=== PATIENT | male | born 1960 ===

== ENCOUNTER 2018-02-25 01:27 | Observation (INO) | payer OTHER ==
--- NOTE | 2018-02-25 01:48 | ED PDOC ---
Arrival/HPI - General Time Seen by Provider: 02/25/18 01:28 Historian: Patient - History of Present Illness Narrative History of Present Illness (Text): 02/25/18 01:46 58 year old male, whose past medical history includes CAD with stents s/p CABG, hypertension, seizure disorder (Keppra), A-fib, COPD, CHF w/ defibrillator, asplenia, alcohol abuse, and depression, presents to the emergency department complaining of onset chest pressure associated with shortness of breath. Patient denies any fever, chills, cough, nausea, vomiting, diarrhea, urinary symptoms, back pain, neck pain, headache, dizziness, or any other complaints. PMD: Dr. Adalberto Marlow Symptom Onset: Gradual Symptom Course: Unchanged Quality: Pressure Activities at Onset: Light Context: Home Past Medical History - Provider Review Nursing Documentation Reviewed: Yes - Infectious Disease Hx of Infectious Diseases: None - Tetanus Immunization Tetanus Immunization: Unknown - Cardiac Hx Atrial Fibrillation: Yes Hx Cardiac Arrhythmia: Yes Hx Congestive Heart Failure: Yes Hx Hypertension: Yes Hx Pacemaker: Yes - Pulmonary Hx Asthma: Yes Hx Chronic Obstructive Pulmonary Disease (COPD): Yes Hx Pneumonia: Yes - Neurological Hx Seizures: Yes - HEENT Hx HEENT Disorder: No - Renal Hx Renal Disorder: No - Endocrine/Metabolic Hx Endocrine Disorders: Yes Hx Diabetes Mellitus Type 2: Yes - Hematological/Oncological Hx Blood Disorders: No - Integumentary Hx Dermatological Disorder: No - Musculoskeletal/Rheumatological Hx Musculoskeletal Disorders: Yes Hx Falls: Yes (hx of siezures) - Gastrointestinal Hx Gastrointestinal Disorders: No - Genitourinary/Gynecological Hx Genitourinary Disorders: No - Psychiatric Hx Depression: Yes Hx Substance Use: Yes - Surgical History Hx Coronary Artery Bypass Graft: Yes Hx Coronary Stent: Yes (4) - Anesthesia Hx Anesthesia: Yes Hx Anesthesia Reactions: No Hx Malignant Hyperthermia: No - Suicidal Assessment Feels Threatened In Home Enviroment: No Family/Social History - Physician Review Nursing Documentation Reviewed: Yes Family/Social History: No Known Family HX Smoking Status: Former Smoker Hx Alcohol Use: No Hx Substance Use: Yes Hx Substance Use Treatment: No Allergies/Home Meds Allergies/Adverse Reactions: Allergies No Known Allergies Allergy (Verified 02/25/18 01:32) as per patient Home Medications: Home Meds Medication Instructions Recorded Confirmed Dicyclomine [Bentyl] 20 mg PO DAILY 05/30/17 02/25/18 Fluticasone/Salmeterol [Advair 1 each IH Q4H PRN 05/30/17 02/25/18 250-50 Diskus] Folic Acid 1 mg PO DAILY 05/30/17 02/25/18 Thiamine [Vitamin B1 Tab] 100 mg PO DAILY 05/30/17 02/25/18 Zolpidem [Ambien] 5 mg PO HS 05/30/17 02/25/18 Albuterol/Ipratropium [Combivent 1 puff IH PRN PRN 07/30/17 02/25/18 Respimat] Apixaban [Eliquis] 5 mg PO Q12H 07/30/17 02/25/18 Fluticasone/Vilanterol [Breo 1 each IH DAILY 07/30/17 02/25/18 Ellipta 200-25 Mcg INH] Furosemide [Lasix] 40 mg PO DAILY 07/30/17 02/25/18 Montelukast [Singulair] 10 mg PO DAILY 07/30/17 02/25/18 Multivitamin [Daily Terence] 1 tab PO DAILY 07/30/17 02/25/18 Carvedilol [Coreg] 12.5 mg PO BID 11/14/17 02/25/18 Lisinopril [Zestril] 5 mg PO DAILY 11/14/17 02/25/18 Prednisone [Deltasone] 20 mg PO DAILY 11/14/17 02/25/18 Spironolactone [Aldactone] 25 mg PO DAILY 11/14/17 02/25/18 Review of Systems - Physician Review All systems were reviewed & negative as marked: Yes - Review of Systems Constitutional: absent: Fevers, Other (Chills) Respiratory: SOB Cardiovascular: Chest Pain (Pressure) Gastrointestinal: absent: Diarrhea, Nausea, Vomiting Genitourinary Male: absent: Dysuria, Frequency, Hematuria Musculoskeletal: absent: Back Pain, Neck Pain Neurological: absent: Headache, Dizziness Physical Exam Vital Signs Reviewed: Yes Vital Signs Temp Pulse Resp BP Pulse Ox 02/25/18 01:50 98 F 90 16 118/79 100 Temperature: Afebrile Blood Pressure: Normal Pulse: Regular Respiratory Rate: Normal Appearance: Positive for: Well-Appearing, Non-Toxic, Comfortable Pain Distress: None Mental Status: Positive for: Alert and Oriented X 3 - Systems Exam Head: Present: Atraumatic, Normocephalic Pupils: Present: PERRL Extroacular Muscles: Present: EOMI Conjunctiva: Present: Normal Mouth: Present: Moist Mucous Membranes Neck: Present: Normal Range of Motion Respiratory/Chest: Present: Wheezes (scattered wheezing bilaterally). No: Respiratory Distress, Accessory Muscle Use Cardiovascular: Present: Regular Rate and Rhythm, Normal S1, S2. No: Murmurs Abdomen: No: Tenderness, Distention, Peritoneal Signs Back: Present: Normal Inspection Upper Extremity: Present: Normal Inspection. No: Cyanosis, Edema Lower Extremity: Present: Normal Inspection. No: Edema Neurological: Present: GCS=15, CN II-XII Intact, Speech Normal Skin: Present: Warm, Dry, Normal Color. No: Rashes Psychiatric: Present: Alert, Oriented x 3, Normal Insight, Normal Concentration Medical Decision Making ED Course and Treatment: 02/25/18 01:48 Impression: 58 year old male presents complaining of chest pressure associated with shortness of breath. Plan: -- EKG -- Labs -- Chest X-ray -- Douneb, Nitro-bid % Oint -- Reassess and disposition Progress Notes: EKG shows NSR at 96 BPM with occasional PVC. Inferior ST/T changes. No changes from pervious EKG. Interpreted by me. 02/25/18 02:42 CXR Impression: As read by me, no acute process. 02/25/18 02:46 Case discussed with the Analysis Mgr and Dr. Milind Griffin who is aware and agrees with the plan. Accepts patient to Hospitalist service for COPD with chest pain. - Lab Interpretations Lab Results: 02/25/18 01:56 02/25/18 01:56 Lab Results 02/25/18 01:56: WBC 15.3 H D, RBC 4.33, Hgb 12.6 L, Hct 37.3 L, MCV 86.1, MCH 29.1, MCHC 33.8, RDW 17.5 H, Plt Count 311, MPV 10.2 02/25/18 01:56: Sodium 139, Potassium 3.7, Chloride 100, Carbon Dioxide 28, Anion Gap 15, BUN 13, Creatinine 0.7 L, Est GFR ( Amer) > 60, Est GFR ( Non-Af Amer) > 60, Random Glucose 166 H, Calcium 8.2 L, Total Bilirubin 0.5, AST 218 H D, ALT 330 H, Alkaline Phosphatase 197 H D, Lactate Dehydrogenase 1238 H, Total Creatine Kinase 46, Troponin I 0.03, NT-Pro-B Natriuret Pep 577 H , Total Protein 6.8, Albumin 3.7, Globulin 3.1, Albumin/Globulin Ratio 1.2 02/25/18 01:56: PT 10.1, INR 0.89 L, APTT 21.0 L I have reviewed the lab results: Yes - RAD Interpretation Radiology Orders: 02/25/18 01:34 CHEST PORTABLE [RAD] Stat - EKG Interpretation Interpreted by ED Physician: Yes Type: 12 lead EKG - Medication Orders Current Medication Orders: Discontinued Medications Albuterol/Ipratropium (Duoneb 3 Mg/0.5 Mg (3 Ml) Ud) 3 ml IH ONCE STA Stop: 02/25/18 01:51 Last Admin: 02/25/18 02:04 Dose: 3 ml Albuterol/Ipratropium (Duoneb 3 Mg/0.5 Mg (3 Ml) Ud) 3 ml IH ONCE STA Stop: 02/25/18 02:50 Nitroglycerin (Nitro-Bid 2% Oint) 1 ea TOP ONCE STA Stop: 02/25/18 01:51 Last Admin: 02/25/18 02:03 Dose: 1 ea - Scribe Statement The provider has reviewed the documentation as recorded by the Oliva Alvarez Provider Scribe Attestation: All medical record entries made by the Toniibmildred were at my direction and personally dictated by me. I have reviewed the chart and agree that the record accurately reflects my personal performance of the history, physical exam, medical decision making, and the department course for this patient. I have also personally directed, reviewed, and agree with the discharge instructions and disposition. Disposition/Present on Arrival - Present on Arrival Any Indicators Present on Arrival: No History of DVT/PE: No History of Uncontrolled Diabetes: No Urinary Catheter: No History of Decub. Ulcer: No History Surgical Site Infection Following: None - Disposition Have Diagnosis and Disposition been Completed?: Yes Diagnosis: Chronic obstructive lung disease, Chest pain Disposition: HOSPITALIZED Disposition Time: 02:51 Patient Plan: Observation Condition: STABLE Discharge Instructions (ExitCare): Chest Pain (ED) Referrals: Marlow,Jasper L, MD [Primary Care Provider] - Follow up with primary
[2018-02-25] MEDS ORDERED: Nitroglycerin 2% Ointment Foilpak UD TOP STA (01:50)
[2018-02-25] MEDS ORDERED: Albuterol-Ipratrop 3 mg / 0.5 (3 ml) UD IH STA ×2 (01:50→02:49)
[2018-02-25 02:20] LABS: HEMOGLOBIN 12.6 g/dL (14.0-18.0); MEAN CELL VOLUME 86.1 fl (80.0-105.0); MEAN CORPUSCULAR HEMOGLOBIN 29.1 pg (25.0-35.0); MEAN CORPUSCULAR HGB CONC 33.8 g/dl (31.0-37.0); MEAN PLATELET VOLUME 10.2 fl (7.0-11.0); RBC 4.33 10^6/uL (3.5-6.1); RED CELL DISTRIBUTION WIDTH 17.5 % (11.5-14.5); WHITE BLOOD COUNT 15.3 10^3/ul (4.5-11.0)
[2018-02-25 02:27] LABS: ALB/GLOB RATIO 1.2 (1.1-1.8); ALBUMIN 3.7 g/dL (3.0-4.8); ALT/SGPT 330 U/L (7-56); AST/SGOT 218 U/L (17-59); BLOOD UREA NITROGEN 13 mg/dL (7-21); CALCIUM 8.2 mg/dL (8.4-10.5); GFR AFRICAN-AMERICAN > 60; GFR NON-AFRICAN AMERICAN > 60
[2018-02-25 02:29] LABS: INR 0.89 (0.93-1.08); PROTHROMBIN TIME 10.1 SECONDS (9.4-12.5)
[2018-02-25 02:39] LABS: B-TYPE NATRIURETIC PEPTIDE 577 pg/mL (0-450); TROPONIN I 0.03 ng/mL
[2018-02-25] MEDS ORDERED: Albuterol-Ipratrop 3 mg / 0.5 (3 ml) UD IH PRN (03:18)
[2018-02-25] MEDS ORDERED: Fluticasone-Salmeterol 250-50mcg Diskus IH PRN (03:18)
--- NOTE | 2018-02-25 03:34 | CP.PCM.HP ---
<Rico Brambila - Last Filed: 02/25/18 03:39> History of Present Illness - History of Present Illness History of Present Illness: 57 year old male with a past medical history of Atrial fibrillation on Eliquis, Hep C, Asthma, CHF EF 15% s/p AICD, COPD, HTN, HLD, CAD s/p stents, CABG, Polysubstance abuse, Alcohol abuse who presents with some midsternal chest discomfort and shortness of breath after walking for thirty minutes. He called the ambulance and was brought in. He also reports of 3 days of a cough, some whitish sputum, but denies fever and chills. The chest pain is non-exertional in nature and the topical NG did not improve his symptoms. He is drinking and appears drunk on exam. He denies any fall, weakness, dysuria, or seizure like activities. He denies using any cocaine. He reports taking all his medications. PMHx: alcohol abuse, smoking, COPD, CHF ischemic cardiomyopathy EF 15-25% s/p AICD, h/o aflutter, not on anticoagulation due to non compliance, CAD, s/p CABG 8 yrs back, s/p PCI post cabg 5, s/p AICD last year, seizures, multiple lacunar strokes. Surgical Hx: CABG, spleen resection, AICD placement, inguinal hernia and has 2 screws in his ankle. Family Hx: Father and Mother with "heart problems" Social Hx: admits to tobacco use, states he drinks 3 [employer] beers 3 times a week. PMD: Denies Present on Admission - Present on Admission Any Indicators Present on Admission: No Review of Systems - Review of Systems All systems: reviewed and no additional remarkable complaints except Review of Systems: as per HPI Past Patient History - Infectious Disease Hx of Infectious Diseases: None - Tetanus Immunizations Tetanus Immunization: Unknown - Past Medical History & Family History Past Medical History?: Yes - Past Social History Smoking Status: Former Smoker - CARDIAC Hx Atrial Fibrillation: Yes Hx Cardia Arrhythmia: Yes Hx Congestive Heart Failure: Yes Hx Hypertension: Yes Hx Pacemaker: Yes - PULMONARY Hx Asthma: Yes Hx Chronic Obstructive Pulmonary Disease (COPD): Yes Hx Pneumonia: Yes - NEUROLOGICAL Hx Seizures: Yes - HEENT Hx HEENT Problems: No - RENAL Hx Chronic Kidney Disease: No - ENDOCRINE/METABOLIC Hx Endocrine Disorders: Yes Hx Diabetes Mellitus Type 2: Yes - HEMATOLOGICAL/ONCOLOGICAL Hx Blood Disorders: No - INTEGUMENTARY Hx Dermatological Problems: No - MUSCULOSKELETAL/RHEUMATOLOGICAL Hx Musculoskeletal Disorders: Yes Hx Falls: Yes (hx of siezures) - GASTROINTESTINAL Hx Gastrointestinal Disorders: No - GENITOURINARY/GYNECOLOGICAL Hx Genitourinary Disorders: No - PSYCHIATRIC Hx Depression: Yes Hx Substance Use: Yes - SURGICAL HISTORY Hx Coronary Artery Bypass Graft: Yes Hx Coronary Stent: Yes (4) - ANESTHESIA Hx Anesthesia: Yes Hx Anesthesia Reactions: No Hx Malignant Hyperthermia: No Meds Allergies/Adverse Reactions: Allergies Allergy/AdvReac Type Severity Reaction Status Date / Time No Known Allergies Allergy Verified 02/25/18 01:32 Physical Exam - Constitutional Appears: Non-toxic - Head Exam Head Exam: ATRAUMATIC, NORMOCEPHALIC - Eye Exam Eye Exam: EOMI, Normal appearance - ENT Exam ENT Exam: Mucous Membranes Moist - Neck Exam Neck exam: Positive for: Normal Inspection - Respiratory Exam Respiratory Exam: Rales, Rhonchi, NORMAL BREATHING PATTERN. absent: Accessory Muscle Use - Cardiovascular Exam Cardiovascular Exam: Irregular Rhythm, +S1, +S2 - GI/Abdominal Exam GI & Abdominal Exam: Normal Bowel Sounds, Soft - Extremities Exam Extremities exam: Positive for: pedal edema (trace). Negative for: calf tenderness - Psychiatric Exam Psychiatric exam: Normal Affect, Normal Mood - Skin Skin Exam: Dry, Intact, Normal Color, Warm Results - Vital Signs Recent Vital Signs: Last Vital Signs Temp 98 F 02/25/18 01:50 Pulse 90 02/25/18 01:50 Resp 16 02/25/18 01:50 BP 118/79 02/25/18 01:50 Pulse Ox 100 02/25/18 01:50 - Labs Result Diagrams: 02/25/18 01:56 02/25/18 01:56 Labs: Laboratory Results - last 24 hr 02/25/18 02:50 Alcohol, Quantitative 120 H Assessment & Plan - Assessment and Plan (Free Text) Assessment: 1) CHF exacerbation in a patient with COPD - Chest x-ray shows venous congestion with BNP elevated - Lasix - strict I/Os - daily weights - Duonebs q6h ALANIS and q2h PRN - Continue home medications 2) Chest pain r/o ACS - troponins x 3 - EKG shows atrial fibrillation, LVH with strain, no acute ST-T wave changes 3) Atrial fibrillation in patient with CAD - Continue Eliquis - Digoxin - B-beta brian - aspirin 4) Alcohol withdrawal/ alcohol withdrawal seizure - Fall and seizure precautions - Continue Keppra - ativan 1 mg q4h PRN for symptoms of alcohol withdrawal - MV infusion 5) Hypertension and systolic HF - Continue home medicaitons 6) DVT/GI - SCD - Pepcid Case reviewed and discussed with Dr. Elsa Griffin - Date & Time Date: 02/25/18 Time: 03:50 <Elsa Griffin N - Last Filed: 02/25/18 04:05> Results - Vital Signs Recent Vital Signs: Last Vital Signs Temp 98 F 02/25/18 01:50 Pulse 90 02/25/18 01:50 Resp 16 02/25/18 01:50 BP 118/79 02/25/18 01:50 Pulse Ox 100 02/25/18 01:50 - Labs Result Diagrams: 02/25/18 01:56 02/25/18 01:56 Labs: Laboratory Results - last 24 hr 02/25/18 02/25/18 02:50 03:40 Magnesium 2.3 H Alcohol, Quantitative 120 H
[2018-02-25] MEDS ORDERED: Multivitamin (MVI) 10 ML, Thiamine 100 MG, Folic Acid 1 MG in Sodium Chloride 0.9% 1,00... IV ONE (03:42)
[2018-02-25 05:29] LABS: BARBITURATES, UR NEGATIVE (NEGATIVE); BENZODIAZEPINES, UR NEGATIVE (NEGATIVE); OPIATES, UR NEGATIVE (NEGATIVE); PHENCYCLIDINE, UR NEGATIVE (NEGATIVE)
[2018-02-25 06:38] VITALS: BMI 11.7
[2018-02-25] MEDS ORDERED: Insulin Reg-LOW-Coverage SC SCH (07:30)
[2018-02-25] MEDS: Albuterol-Ipratrop 3 mg / 0.5 (3 ml) UD IH SCH ×3 (08:01→21:26)
[2018-02-25] MEDS: levoFLOXacin 500 MG TAB PO SCH (09:03)
--- NOTE | 2018-02-25 09:36 | RAD ---
HISTORY: Chest pain COMPARISON: Comparison chest 10/28/2017 FINDINGS: LUNGS: Poor inspiration with low lung volumes, crowded bronchovascular markings and mild bibasilar atelectasis. PLEURA: No significant pleural effusion identified, no pneumothorax apparent. CARDIOVASCULAR: Cardiomegaly. No change single lead pacemaker/defibrillator sternotomy wires and CABG clips again noted. OSSEOUS STRUCTURES: No significant abnormalities. VISUALIZED UPPER ABDOMEN: Normal. OTHER FINDINGS: None. IMPRESSION: Poor inspiration with low lung volumes, crowded bronchovascular markings and mild bibasilar atelectasis. Cardiomegaly
[2018-02-25] MEDS ORDERED: MethylPREDNISolone 40 mg Vial IVP SCH (10:00)
[2018-02-25] MEDS: MethylPREDNISolone 40 mg Vial IVP SCH (10:30)
--- NOTE | 2018-02-25 10:59 | CP.PCM.PN ---
<Jose Ching - Last Filed: 02/25/18 10:56> Subjective - Date & Time of Evaluation Date of Evaluation: 02/25/18 Time of Evaluation: 10:56 - Subjective Subjective: Patient seen and examined at bedside. Complaining of chest pain, back pain. No SOB. No diaphoresis. Pain is reproducible on exam. No tremors, auditory hallucinations, visual hallucinations. Patient states he continues to smoke cigs and drink alcohol. No nausea or vomiting. No other complaints at this time. Objective - Vital Signs/Intake and Output Vital Signs (last 24 hours): Temp Pulse Resp BP Pulse Ox 98.2 F 97 H 20 114/69 96 02/25/18 06:42 02/25/18 09:03 02/25/18 06:42 02/25/18 09:03 02/25/18 06:42 - Medications Medications: Current Medications Albuterol/Ipratropium (Duoneb 3 Mg/0.5 Mg (3 Ml) Ud) 3 ml IH [id number] REPLACED BY [facility] Last Admin: 02/25/18 08:01 Dose: 3 ml Apixaban (Eliquis) 5 mg PO BID REPLACED BY [facility] PRN Reason: Protocol Last Admin: 02/25/18 09:03 Dose: 5 mg Aspirin (Ecotrin) 81 mg PO DAILY REPLACED BY [facility] Last Admin: 02/25/18 09:02 Dose: 81 mg Carvedilol (Coreg) 12.5 mg PO BID REPLACED BY [facility] Last Admin: 02/25/18 09:03 Dose: 12.5 mg Dicyclomine HCl (Bentyl) 20 mg PO DAILY REPLACED BY [facility] Last Admin: 02/25/18 09:02 Dose: 20 mg Digoxin (Lanoxin) 0.25 mg PO 1400 ALANIS Folic Acid (Folic Acid) 1 mg PO DAILY REPLACED BY [facility] Last Admin: 02/25/18 09:02 Dose: 1 mg Furosemide (Lasix) 40 mg IVP Q12 REPLACED BY [facility] Last Admin: 02/25/18 09:03 Dose: 40 mg Insulin Human Regular (Humulin R Low) 0 units SC ACHS REPLACED BY [facility] PRN Reason: Protocol Last Admin: 02/25/18 07:30 Dose: Not Given Levetiracetam (Keppra) 500 mg PO BID REPLACED BY [facility] Last Admin: 02/25/18 09:03 Dose: 500 mg Levofloxacin (Levaquin) 500 mg PO DAILY REPLACED BY [facility] PRN Reason: Protocol Stop: 03/04/18 10:01 Last Admin: 02/25/18 09:03 Dose: 500 mg Lisinopril (Zestril) 5 mg PO DAILY REPLACED BY [facility] Last Admin: 02/25/18 09:03 Dose: 5 mg Lorazepam (Ativan) 1 mg IVP Q4H PRN; Protocol PRN Reason: Symptoms of alcohol withdrawl Last Admin: 02/25/18 04:40 Dose: 1 mg Methylprednisolone (Solu-Medrol) 40 mg IVP DAILY REPLACED BY [facility] Last Admin: 02/25/18 10:30 Dose: Not Given Montelukast Sodium (Singulair) 10 mg PO [facility] Spironolactone (Aldactone) 25 mg PO DAILY REPLACED BY [facility] Last Admin: 02/25/18 09:02 Dose: 25 mg Thiamine HCl (Vitamin B1 Tab) 100 mg PO DAILY REPLACED BY [facility] Last Admin: 02/25/18 09:02 Dose: 100 mg - Labs Labs: PT 10.1 SECONDS (9.4-12.5) 02/25/18 01:56 INR 0.89 (0.93-1.08) L 02/25/18 01:56 APTT 21.0 Seconds (25.1-36.5) L 02/25/18 01:56 - Constitutional Appears: No Acute Distress - Head Exam Head Exam: ATRAUMATIC, NORMAL INSPECTION, NORMOCEPHALIC - Eye Exam Eye Exam: EOMI, Normal appearance, PERRL Pupil Exam: NORMAL ACCOMODATION, PERRL - ENT Exam ENT Exam: Mucous Membranes Moist, Normal Exam - Neck Exam Neck Exam: Full ROM, Normal Inspection - Respiratory Exam Respiratory Exam: Chest Wall Tenderness, Rhonchi (course diffuse rhonci and bibasilar crackles), NORMAL BREATHING PATTERN - Cardiovascular Exam Cardiovascular Exam: Tachycardia, REGULAR RHYTHM - GI/Abdominal Exam GI & Abdominal Exam: Soft, Normal Bowel Sounds. absent: Distended, Tenderness - Extremities Exam Extremities Exam: absent: Joint Swelling, Tenderness - Neurological Exam Neurological Exam: Alert, Awake, Oriented x3 - Psychiatric Exam Psychiatric exam: Normal Affect, Normal Mood - Skin Skin Exam: Dry, Intact, Normal Color, Warm Assessment and Plan (1) Chest pain Assessment & Plan: [facility] - F/U reccs Ekg NSR Trops negative x3 Status: Acute (2) Alcohol intoxication Assessment & Plan: Folic acid 1mg PO QD History of W/d Seizures - Keppra 500 PO BID - f/u Keppra level Ativan 1 IV Q4H PRN for symptoms of w/d CIWA protocol - currently score is a 1 and does not require any medication for w /d - will frequently reevaluate. I am not expecting w/d until tomorrow as the patient presented intoxicated Thiamine 100 PO QD Status: Chronic (3) COPD exacerbation Assessment & Plan: Procal to r/o bacterial PNA as patient had leukocytosis Duonebs Q6 Levofloxacin 500 PO QD for 5 days - end on 03/02 Solumedrol 40 IV QD Singulair 10mg PO HS Status: Acute (4) History of atrial fibrillation Assessment & Plan: EKG NSR Eliquis 5 PO BID Dig 0.25 - Dig level <0.4 Status: Acute (5) CHF (congestive heart failure) Assessment & Plan: ASA 81 PO QD Coreg 12.5 PO BID Lasix 40 IV Q12 Lisinopril 5 PO QD Losartan 25 PO QD Aldactone 25 PO QD Status: Chronic (6) Diabetes mellitus Assessment & Plan: Lispro ISS - Med Status: Acute (7) HCV (hepatitis C virus) Assessment & Plan: Abdominal US pending AFP Status: Chronic - Assessment and Plan (Free Text) Assessment: scd On eliquis, no need for heparin or lovenox No GI ppx indicated at this time <Gwyn Mac - Last Filed: 02/26/18 14:07> Objective - Vital Signs/Intake and Output Vital Signs (last 24 hours): Temp Pulse Resp BP Pulse Ox 97.8 F 74 18 114/74 97 02/26/18 06:00 02/26/18 10:40 02/26/18 06:00 02/26/18 10:40 02/26/18 06:00 Intake and Output: 02/26/18 02/26/18 06:59 18:59 Intake Total 180 Output Total 1700 Balance -1520 - Medications Medications: Current Medications Albuterol/Ipratropium (Duoneb 3 Mg/0.5 Mg (3 Ml) Ud) 3 ml IH [id number] REPLACED BY [facility] Last Admin: 02/26/18 11:09 Dose: Not Given Albuterol/Ipratropium (Duoneb 3 Mg/0.5 Mg (3 Ml) Ud) 3 ml IH Q2H PRN PRN Reason: Shortness of Breath Apixaban (Eliquis) 5 mg PO BID REPLACED BY [facility] PRN Reason: Protocol Last Admin: 02/26/18 09:25 Dose: 5 mg Aspirin (Ecotrin) 81 mg PO DAILY REPLACED BY [facility] Last Admin: 02/26/18 09:25 Dose: 81 mg Carvedilol (Coreg) 12.5 mg PO BID REPLACED BY [facility] Digoxin (Lanoxin) 0.25 mg PO 1400 REPLACED BY [facility] Last Admin: 02/26/18 13:46 Dose: 0.25 mg Folic Acid (Folic Acid) 1 mg PO DAILY REPLACED BY [facility] Last Admin: 02/26/18 09:26 Dose: 1 mg Furosemide (Lasix) 40 mg PO DAILY REPLACED BY [facility] Last Admin: 02/26/18 09:24 Dose: 40 mg Insulin Human Lispro (Humalog Med) 0 units SC ACHS REPLACED BY [facility] PRN Reason: Protocol Last Admin: 02/26/18 11:56 Dose: 3 units Ketorolac Tromethamine (Toradol) 15 mg IVP Q6 PRN PRN Reason: Pain, severe (8-10) Last Admin: 02/26/18 10:45 Dose: 15 mg Levetiracetam (Keppra) 500 mg PO BID REPLACED BY [facility] Last Admin: 02/26/18 09:24 Dose: 500 mg Levofloxacin (Levaquin) 500 mg PO DAILY REPLACED BY [facility] PRN Reason: Protocol Stop: 03/02/18 10:01 Last Admin: 02/26/18 09:25 Dose: 500 mg Lisinopril (Zestril) 5 mg PO DAILY REPLACED BY [facility] Last Admin: 02/26/18 10:40 Dose: 5 mg Lorazepam (Ativan) 1 mg IVP Q4H PRN; Protocol PRN Reason: Symptoms of alcohol withdrawl Last Admin: 02/25/18 04:40 Dose: 1 mg Losartan Potassium (Cozaar) 25 mg PO DAILY REPLACED BY [facility] Methylprednisolone (Solu-Medrol) 40 mg IVP DAILY REPLACED BY [facility] Last Admin: 02/26/18 09:25 Dose: 40 mg Montelukast Sodium (Singulair) 10 mg PO HS REPLACED BY [facility] Last Admin: 02/25/18 21:35 Dose: 10 mg Spironolactone (Aldactone) 25 mg PO DAILY REPLACED BY [facility] Last Admin: 02/26/18 10:40 Dose: 25 mg Thiamine HCl (Vitamin B1 Tab) 100 mg PO DAILY ALANIS Last Admin: 02/26/18 09:25 Dose: 100 mg - Labs Labs: 02/26/18 07:00 02/26/18 07:00 PT 10.1 SECONDS (9.4-12.5) 02/25/18 01:56 INR 0.89 (0.93-1.08) L 02/25/18 01:56 APTT 21.0 Seconds (25.1-36.5) L 02/25/18 01:56 Attending/Attestation - Attestation I have personally seen and examined this patient.: Yes I have fully participated in the care of the patient.: Yes I have reviewed all pertinent clinical information, including history, physical exam and plan: Yes Notes (Text): 02/26/18 14:00 Medical record note made by the resident after discussion with my direction and input after the patient was personally seen and examined by me. I have reviewed the chart and agree that the record accurately reflects by personal performance of the history, physical exam, data review, and medical decision-making, in the course for the patient. I have also personally directed the plan of care. 57 year old male with a past medical history of Atrial fibrillation on Eliquis, Hep C, Asthma, CHF EF 15% s/p AICD, COPD, HTN, HLD, CAD s/p stents, CABG, Polysubstance abuse, Alcohol abuse is admitted with chest pain, has chest wall tenderness.Chest pain is atypical in nature. Patient is also wheezing due to COPD exacerbation, Continue Neb/Steroid and antibiotics. Elevated LFT due to alcohol abuse.we will monitor .Monitor for alcohol withdrawal. Issue of ongoing alcohol abuse, chronic smoking and compliance with medication was discussed in detail. Management plan was discussed in detail with patient. Education was provided.
[2018-02-25] MEDS: Insulin Lispro (humaLOG) MEDIUM Coverage SC SCH ×3 (11:30→21:33)
--- NOTE | 2018-02-25 12:12 | US ---
HISTORY: Attention to liver COMPARISON: Comparison made with prior CT scan abdomen pelvis 10/29/2016 and abdominal ultrasound 08/15/2016. TECHNIQUE: Sonographic evaluation of the abdomen. FINDINGS: LIVER: Measures 14.7 cm in CC dimension however note that the liver measures approximately 17 cm in CC dimension on prior CT scan. . Smooth contour however increased echotexture consistent with fatty infiltration however other infiltrative hepatocellular disease process not excluded. . Liver parenchyma. No obvious masses or collections seen on images presented. . No intrahepatic bile duct dilatation. GALLBLADDER: Unremarkable. No gallstones. . No pericholecystic fluid collections or sonographic Malone sign COMMON BILE DUCT: Measures 3.2 mm. No stones. No dilatation. PANCREAS: Unremarkable as visualized. No mass. No ductal dilatation. RIGHT KIDNEY: Measures 10.4 x 5.8 x 5.1cm. Normal echogenicity. No calculus, mass, or hydronephrosis. LEFT KIDNEY: Measures 10.3 x 6.6 x 5.2cm. Normal echogenicity. No calculus, mass, or hydronephrosis. Smallest cyst approximately 1.2 x 1.7 x 1.5 mm cyst midpole left kidney. SPLEEN: Splenectomy. The AORTA: No aneurysmal dilatation. IVC: Unremarkable. OTHER FINDINGS: None. IMPRESSION: Diffuse homogeneous increased hepatic echotexture consistent with fatty infiltration however other infiltrative hepatocellular disease process not excluded. Status post splenectomy Small cyst left kidney as above
[2018-02-25] MEDS: Digoxin 250 mcg (0.25 mg) Tab PO SCH (13:48)
[2018-02-25 17:07] VITALS: O2SAT 97
[2018-02-26] MEDS: Albuterol-Ipratrop 3 mg / 0.5 (3 ml) UD IH SCH ×5 (03:00→21:44)
[2018-02-26 07:35] LABS: BASO # 0.01 K/mm3 (0.0-2.0); EOS # 0.1 (0.0-0.7); EOS % 0.2 % (1.5-5.0); GRAN # 25.92 (1.4-6.5); GRAN % 84.8 % (50.0-68.0); HEMOGLOBIN 12.6 g/dL (14.0-18.0); LYMPH # 1.6 (1.2-3.4); LYMPH % 5.3 % (22.0-35.0); MEAN CELL VOLUME 86.4 fl (80.0-105.0); MEAN CORPUSCULAR HEMOGLOBIN 28.6 pg (25.0-35.0); MEAN CORPUSCULAR HGB CONC 33.1 g/dl (31.0-37.0); MEAN PLATELET VOLUME 10.7 fl (7.0-11.0); MONO % 9.7 % (1.0-6.0); PLATELET COUNT 316 10^3/uL (120.0-450.0); RBC 4.41 10^6/uL (3.5-6.1); RED CELL DISTRIBUTION WIDTH 16.9 % (11.5-14.5)
[2018-02-26 07:45] LABS: ALB/GLOB RATIO 1.2 (1.1-1.8); ALBUMIN 3.6 g/dL (3.0-4.8); ALT/SGPT 269 U/L (7-56); AST/SGOT 126 U/L (17-59); BLOOD UREA NITROGEN 27 mg/dL (7-21); CALCIUM 9.1 mg/dL (8.4-10.5); GFR AFRICAN-AMERICAN > 60; GFR NON-AFRICAN AMERICAN > 60; WHITE BLOOD COUNT 30.6 10^3/ul (4.5-11.0)
[2018-02-26] MEDS: Insulin Lispro (humaLOG) MEDIUM Coverage SC SCH ×4 (07:53→22:20)
--- NOTE | 2018-02-26 08:06 | CARD ---
APPROVED REPORT EKG Measurement Heart [id number] <Conclusion> Sinus rhythm with occasional premature ventricular complexes ST & T wave abnormality, consider inferioro Lateral ischemia Abnormal ECG
[2018-02-26] MEDS ORDERED: Albuterol-Ipratrop 3 mg / 0.5 (3 ml) UD IH PRN (08:22)
[2018-02-26] MEDS: MethylPREDNISolone 40 mg Vial IVP SCH (09:25)
[2018-02-26] MEDS: levoFLOXacin 500 MG TAB PO SCH (09:25)
[2018-02-26 09:34] LABS: LYMPHOCYTE 9 % (22.0-35.0); METAMYELOCYTE 1 %; MONOCYTE 9 % (1.0-6.0); MYELOCYTE 2 %; NEUTROPHIL 79 % (50.0-70.0); PLATELET ESTIMATE NORMAL (NORMAL)
[2018-02-26] MEDS: Digoxin 250 mcg (0.25 mg) Tab PO SCH (13:46)
[2018-02-26 13:48] VITALS: PULSE 72
--- NOTE | 2018-02-26 18:09 | CP.PCM.PN ---
<JhonatanShamar - Last Filed: 02/26/18 17:49> Subjective - Date & Time of Evaluation Date of Evaluation: 02/26/18 Time of Evaluation: 10:30 - Subjective Subjective: Medicine progress note: Dr. Mac Patient seen and examined at bedside. No Acute events overnight. Patient denies any complaints at present time. Objective - Vital Signs/Intake and Output Vital Signs (last 24 hours): Temp Pulse Resp BP Pulse Ox 97.8 F 75 18 100/64 97 02/26/18 06:00 02/26/18 17:12 02/26/18 06:00 02/26/18 17:12 02/26/18 06:00 Intake and Output: 02/26/18 02/26/18 06:59 18:59 Intake Total 180 Output Total 1700 Balance -1520 - Medications Medications: Current Medications Albuterol/Ipratropium (Duoneb 3 Mg/0.5 Mg (3 Ml) Ud) 3 ml IH [id number] [facility] Last Admin: 02/26/18 15:01 Dose: Not Given Albuterol/Ipratropium (Duoneb 3 Mg/0.5 Mg (3 Ml) Ud) 3 ml IH Q2H PRN PRN Reason: Shortness of Breath Apixaban (Eliquis) 5 mg PO BID [facility] PRN Reason: Protocol Last Admin: 02/26/18 17:12 Dose: 5 mg Aspirin (Ecotrin) 81 mg PO DAILY [facility] Last Admin: 02/26/18 09:25 Dose: 81 mg Carvedilol (Coreg) 12.5 mg PO BID [facility] Last Admin: 02/26/18 17:12 Dose: Not Given Digoxin (Lanoxin) 0.25 mg PO 1400 [facility] Last Admin: 02/26/18 13:46 Dose: 0.25 mg Folic Acid (Folic Acid) 1 mg PO DAILY [facility] Last Admin: 02/26/18 09:26 Dose: 1 mg Furosemide (Lasix) 40 mg PO DAILY [facility] Last Admin: 02/26/18 09:24 Dose: 40 mg Insulin Human Lispro (Humalog Med) 0 units SC ACHS [facility] PRN Reason: Protocol Last Admin: 02/26/18 17:12 Dose: 7 units Ketorolac Tromethamine (Toradol) 15 mg IVP Q6 PRN PRN Reason: Pain, severe (8-10) Last Admin: 02/26/18 16:14 Dose: 15 mg Levetiracetam (Keppra) 500 mg PO BID [facility] Last Admin: 02/26/18 17:12 Dose: 500 mg Levofloxacin (Levaquin) 500 mg PO DAILY [facility] PRN Reason: Protocol Stop: 03/02/18 10:01 Last Admin: 02/26/18 09:25 Dose: 500 mg Lisinopril (Zestril) 5 mg PO DAILY [facility] Last Admin: 02/26/18 10:40 Dose: 5 mg Lorazepam (Ativan) 1 mg IVP Q4H PRN; Protocol PRN Reason: Symptoms of alcohol withdrawl Last Admin: 02/25/18 04:40 Dose: 1 mg Losartan Potassium (Cozaar) 25 mg PO DAILY [facility] Methylprednisolone (Solu-Medrol) 40 mg IVP DAILY [facility] Last Admin: 02/26/18 09:25 Dose: 40 mg Montelukast Sodium (Singulair) 10 mg PO HS [facility] Last Admin: 02/25/18 21:35 Dose: 10 mg Spironolactone (Aldactone) 25 mg PO DAILY [facility] Last Admin: 02/26/18 10:40 Dose: 25 mg Thiamine HCl (Vitamin B1 Tab) 100 mg PO DAILY [facility] Last Admin: 02/26/18 09:25 Dose: 100 mg - Labs Labs: 02/26/18 07:00 02/26/18 07:00 PT 10.1 SECONDS (9.4-12.5) 02/25/18 01:56 INR 0.89 (0.93-1.08) L 02/25/18 01:56 APTT 21.0 Seconds (25.1-36.5) L 02/25/18 01:56 - Constitutional Appears: Well - Head Exam Head Exam: ATRAUMATIC, NORMAL INSPECTION, NORMOCEPHALIC - Eye Exam Eye Exam: EOMI, Normal appearance, PERRL Pupil Exam: NORMAL ACCOMODATION, PERRL - ENT Exam ENT Exam: Mucous Membranes Moist, Normal Exam - Neck Exam Neck Exam: Full ROM, Normal Inspection. absent: Lymphadenopathy - Respiratory Exam Respiratory Exam: Clear to Ausculation Bilateral, NORMAL BREATHING PATTERN - Cardiovascular Exam Cardiovascular Exam: REGULAR RHYTHM, +S1, +S2. absent: Murmur - GI/Abdominal Exam GI & Abdominal Exam: Soft, Normal Bowel Sounds. absent: Tenderness - Extremities Exam Extremities Exam: Full ROM, Normal Capillary Refill, Normal Inspection. absent : Joint Swelling, Pedal Edema - Back Exam Back Exam: NORMAL INSPECTION - Neurological Exam Neurological Exam: Alert, Awake, CN II-XII Intact, Normal Gait, Oriented x3 - Psychiatric Exam Psychiatric exam: Normal Affect, Normal Mood - Skin Skin Exam: Dry, Intact, Normal Color, Warm Assessment and Plan - Assessment and Plan (Free Text) Assessment: Chest pain - Cardiology consult: Dr. Baltazar - Ekg NSR - Trops negative x3 Alcohol intoxication - Folic acid 1mg PO QD - History of W/d Seizures - Keppra 500 PO BID - f/u Keppra level - Ativan 1 IV Q4H PRN for symptoms of w/d - CIWA protocol - Thiamine 100 PO QD COPD exacerbation - Procal negative - Duonebs Q6 - Levofloxacin 500 PO QD for 5 days - end on 03/02 - Solumedrol 40 IV QD - Singulair 10mg PO HS History of atrial fibrillation - EKG NSR - Eliquis 5 PO BID - Dig 0.25 - Dig level <0.4 CHF - ASA 81 PO QD - Coreg 12.5 PO BID - Lasix 40 IV Q12 - Lisinopril 5 PO QD - Losartan 25 PO QD - Aldactone 25 PO QD Diabetes mellitus - Lispro ISS - Med HCV - Abdominal US pending: fatty hepatic infiltrates - AFP: negative Prophylaxis - Eliquis/No GI PPX necessary <Gwyn Mac - Last Filed: 02/27/18 15:17> Objective - Vital Signs/Intake and Output Vital Signs (last 24 hours): Temp Pulse Resp BP Pulse Ox 97.8 F 80 20 105/70 97 02/27/18 05:55 02/27/18 10:10 02/27/18 05:55 02/27/18 10:10 02/27/18 05:55 Intake and Output: 02/27/18 02/27/18 06:59 18:59 Intake Total 974 Output Total 402 Balance 572 - Labs Labs: 02/27/18 06:30 02/27/18 06:30 PT 10.1 SECONDS (9.4-12.5) 02/25/18 01:56 INR 0.89 (0.93-1.08) L 02/25/18 01:56 APTT 21.0 Seconds (25.1-36.5) L 02/25/18 01:56 Attending/Attestation - Attestation I have personally seen and examined this patient.: Yes I have fully participated in the care of the patient.: Yes I have reviewed all pertinent clinical information, including history, physical exam and plan: Yes Notes (Text): 02/27/18 15:15 Medical record note made by the resident after discussion with my direction and input after the patient was personally seen and examined by me. I have reviewed the chart and agree that the record accurately reflects by personal performance of the history, physical exam, data review, and medical decision-making, in the course for the patient. I have also personally directed the plan of care. 57 year old male with a past medical history of Atrial fibrillation on Eliquis, Hep C, Asthma, CHF EF 15% s/p AICD, COPD, HTN, HLD, CAD s/p stents, CABG, Polysubstance abuse, Alcohol abuse was admitted with chest pain, cough and dyspnea..Patient has , has chest wall tenderness.Chest pain is atypical in nature.Serial troponins are normal. COPD exacerbation, Continue Neb/Steroid and antibiotics. Leukocytosis is due to steroid.Patient is afebrile.We will monitor.Steroid dose has been reduced . Elevated LFT due to alcohol abuse.Improving,Alcohol withdrawal are improved Issue of ongoing alcohol abuse, chronic smoking and compliance with medication was discussed in detail. Management plan was discussed in detail with patient. Education was provided.
[2018-02-26 18:32] VITALS: RESP 20
[2018-02-27] MEDS: Albuterol-Ipratrop 3 mg / 0.5 (3 ml) UD IH SCH ×4 (01:32→10:52)
[2018-02-27 05:56] VITALS: TEMP 97.8
[2018-02-27 07:03] LABS: BASO # 0.01 K/mm3 (0.0-2.0); EOS # 0.1 (0.0-0.7); EOS % 0.2 % (1.5-5.0); GRAN # 23.44 (1.4-6.5); GRAN % 84.2 % (50.0-68.0); HEMOGLOBIN 12.7 g/dL (14.0-18.0); LYMPH # 1.7 (1.2-3.4); LYMPH % 6.2 % (22.0-35.0); MEAN CELL VOLUME 86.8 fl (80.0-105.0); MEAN CORPUSCULAR HGB CONC 33.4 g/dl (31.0-37.0); MEAN PLATELET VOLUME 10.5 fl (7.0-11.0); MONO # 2.6 (0.1-0.6); MONO % 9.4 % (1.0-6.0); RBC 4.38 10^6/uL (3.5-6.1); RED CELL DISTRIBUTION WIDTH 17.3 % (11.5-14.5)
[2018-02-27 07:17] LABS: ALB/GLOB RATIO 1.2 (1.1-1.8); ALBUMIN 3.6 g/dL (3.0-4.8); ALT/SGPT 249 U/L (7-56); AST/SGOT 131 U/L (17-59); BLOOD UREA NITROGEN 30 mg/dL (7-21); GFR AFRICAN-AMERICAN > 60; GFR NON-AFRICAN AMERICAN > 60
[2018-02-27 07:33] LABS: WHITE BLOOD COUNT 27.9 10^3/ul (4.5-11.0)
--- NOTE | 2018-02-27 07:37 | CON ---
DATE: 02/25/2018 REASON FOR CONSULTATION: Chest pain as well as shortness of breath. HISTORY OF PRESENT ILLNESS: The patient is a 58-year-old male who has a history of double coronary artery bypass surgery at [facility] 15 years ago, history of cardiac stenting 4 times, 2 at [facility] and 2 at [facility], history of CHF, status post ICD placement, presented because of chest tightness and shortness of breath. The patient has a history of cannabinoid and alcohol abuse, positive for cannabinoid and his alcohol level was 120. Today, the patient denies any chest pain. The patient's blood pressure is reported to be borderline low. The patient's most recent cardiac catheterization on record here was in 01/2015, where the patient underwent successful PTCA and stent to critically stenosed right coronary artery. At that time, cardiac catheterization revealed 2-vessel CAD with patent saphenous vein graft to obtuse marginal branch, which reveals disease and 90% stenosis in the site of saphenous vein graft to obtuse marginal branch. The artery lesions were stented with bare metal stents. SOCIAL HISTORY: The patient is a smoker, EtOH abuser and cannabinoid abuser. MEDICATIONS: The patient is currently on Aldactone 25 mg once a day, Ativan 1 mg intravenously every 4 hours p.r.n., Coreg 12.5 mg once day, Cozaar 25 mg once a day, albuterol inhaler every 2 hours p.r.n., aspirin 81 mg once a day, Eliquis 5 mg once a day, digoxin 0.25 mg daily, Keppra 500 mg twice a day, Levaquin 500 mg orally daily, Singulair 10 mg once a day, Toradol 50 mg intravenous every 6 hours p.r.n., thiamine 100 mg once a day, Zestril 5 mg once a day. REVIEW OF SYSTEMS: No fever or chills. No significant discharge of the defibrillator. PHYSICAL EXAMINATION: GENERAL: The patient is a middle-aged male who does not appear to be in acute distress.. VITAL SIGNS: Blood pressure 114/74, heart rate 74, temperature 97.8, respirations 18. HEENT: Head: Normocephalic. HEART: S1 and S2 regular.. CHEST: Bilateral rhonchi. ABDOMEN: Soft. EXTREMITIES: No edema. LABORATORY DATA: Shows hemoglobin and hematocrit 12.6 and 38.1, white count 30.6, platelet count 316,000. SMA-7 shows sodium 131, potassium 4.3, chloride 94, CO2 27, glucose 143, BUN 27, creatinine 0.7. ProBNP is 577, 2 sets of troponins are negative. Chest x-ray revealed cardiomegaly, mild CHF and a single lead ICD. EKG revealed sinus rhythm with occasional PVC's, ST-T wave abnormality, consider inferolateral ischemia. ASSESSMENT: 1. Chest pain and myocardial infarction is ruled out. 2. Coronary artery disease, status post double bypass surgery with known asthmatic and stenosis of the saphenous vein graft to the obtuse marginal branch and stenting to the right coronary artery with a bare metal stent in 2014. The patient very likely had stenting at [facility], but according to him more than 1 year ago. 3. Ethyl alcohol intoxication. 4. Rule out underlying sepsis. 5. Borderline hypotension. CONDITIONS: Continue Coreg at 12.5 mg once a day, Eliquis 5 mg twice a day, aspirin 81 mg once a day, Lasix 40 mg p.o. once a day, thiamine 100 mg once a day, hold both Aldactone and Cozaar for now. The patient's most recent echo was in 05/2017, which revealed severely reduced ejection fraction estimated at 15%, moderate pulmonary hypertension, and moderate eccentric aortic insufficiency. Juan Maciel MD
[2018-02-27] MEDS: Insulin Lispro (humaLOG) MEDIUM Coverage SC SCH ×2 (07:58→11:34)
--- NOTE | 2018-02-27 08:59 | CON ---
DATE: 02/25/2018 REASON FOR CONSULTATION: Chest pain. This consult has been done on behalf of Dr. Maciel whom I am covering. HISTORY OF PRESENT ILLNESS: Patient is a 58-year-old male admitted with a history that since last several days, he is having chest pain and shortness of breath. He also complains of cough. He states that one and half week ago, he was at [facility], had cardiac catheterization done, but does not know the findings. He states the pain is constant, sometimes pressure, sometimes sharp pain. He is also complaining of lower back pain and he is constantly asking for pain medication. He states he gets pain on walking. He has pain at rest. There are no specific pattern of pain at this moment. Patient is a very poor compliant patient. He continued to smoke, continued to drink, and till recently, he also used cocaine. He states he did not use cocaine in the last 2 months and he states he only drinks beer on Monday and Monday, 5 to 6 cans of beer, but his urine is positive for cannabinoids screen and his alcohol level is 120, whereas he says he drinks on Monday and Sundays only. Patient is known to have coronary artery disease, history of CABG about 8 years ago. He had also stent insertion, history of CHF, COPD, history of SVT, atrial flutter, multiple lacunar strokes, seizures, hepatitis C, moderate pulmonary hypertension, splenectomy, and knee surgery, Diabetese, Hypertension. PAST MEDICAL HISTORY: Patient's past history is positive for all above as mentioned in the history, coronary artery disease, history of CABG, stent insertion, CHF, COPD, SVT, atrial flutter, multiple lacunar strokes, seizure disorder, hepatitis C, cocaine and drug abuse, tobacco abuse, alcohol abuse, moderate pulmonary hypertension on echo of 05/30/2017 at [facility] and LV ejection fraction on the same echo was 15% and moderate aortic regurg. History of splenectomy, and knee surgery,DM,HTN. PERSONAL HISTORY: As mentioned. Patient has multiple substance abuse, alcohol abuse, tobacco abuse. ALLERGIES: DENIES ALLERGIES. REVIEW OF SYSTEMS: All the systems reviewed and positive mentioned in the history, others are negative. LIST OF HOME MEDICATIONS: Patient takes Keppra 500 mg b.i.d., Ambien 5 mg at bedtime, thiamine 100 mg daily, Aldactone 25 daily, prednisone 20 daily, Singulair 10 mg daily, Glucophage 500 b.i.d., Cozaar 25 daily, Zestril 5 daily, Lasix 40 daily, folic acid 1 mg daily, digoxin 0.25 daily, Bentyl 20 mg daily, Coreg 12.5 b.i.d., aspirin 81 daily, Eliquis 5 mg b.i.d., Combivent inhaler, albuterol, fluticasone and salmeterol, and Advair Diskus. PHYSICAL EXAMINATION: VITAL SIGNS: Blood pressure 110/74, respirations 18, pulse 84, temperature 98.8. HEENT: Head: Normocephalic. Eyes: Pupil normal. Conjunctivae normal. Nose and throat: Normal. NECK: JVP low. Carotids equal. THORAX: AP diameter normal. LUNGS: Have expiratory wheezing. No significant rales. CHEST: Anterior chest wall, patient has moderate tenderness all over the chest. CARDIOVASCULAR: S1 and S2. No rub. ABDOMEN: Soft. No organomegaly. EXTREMITIES: No clubbing. No cyanosis. LABORATORY DATA: WBC 5.3, hemoglobin 12.6, hematocrit 37.3, platelets 311. Sodium 139, potassium 3.7, BUN 13, creatinine 0.7. Random glucose 166, repeat one 284. AST 218, ALT 330, alkaline phosphatase is 197. LDH 1238. Troponin x2 negative, 0.03 and 0.02. Total protein 6.8, albumin 3.7. PT 10.1, INR 0.89, PTT 21. Alcohol level 120, which is elevated and urine screen positive for cannabinoids screen. Chest x-ray poor inspiration, no evidence of CHF. EKG showed sinus rhythm, PVC and ST-T changes. DIAGNOSES: Chest pain, probably musculoskeletal. Patient had cardiac catheterization one and half year ago at [facility]. Patient states he does not know the findings. Coronary artery disease, status post coronary artery bypass grafting, status post stent insertion; history of congestive heart failure; Diabetese, Hypertension, history of chronic obstructive pulmonary disease; supraventricular tachycardia; atrial flutter; multiple lacunar strokes; seizures; hepatitis C; alcohol abuse; tobacco abuse; cocaine abuse; marijuana inhalation; smoking; moderate pulmonary hypertension; cardiomyopathy; severely decreased left ventricular function with ejection fraction of 15% on echo on 05/30/2017 and right ventricular systolic pressure 58 and moderate aortic insufficiency with echo done at [facility]. PLAN: We will try to get cardiac catheterization report from [facility]. In the meantime, we will treat the patient medically and we will continue patient's medications, spironolactone 25 daily, carvedilol 12.5 b.i.d., losartan 25 daily, DuoNeb hand nebulizer therapy, aspirin 81 mg daily, Eliquis 5 mg b.i.d., folic acid 1 mg daily, digoxin 0.25 daily, furosemide 40 IV daily, Singulair 10 mg daily, methylprednisolone 40 mg IV daily, lisinopril 5 daily. Gwyn Weston MD MTDD
[2018-02-27] MEDS: MethylPREDNISolone 40 mg Vial IVP SCH (10:11)
[2018-02-27] MEDS: levoFLOXacin 500 MG TAB PO SCH (10:11)
[2018-02-27 10:19] VITALS: BP 105/70; PULSE 80
--- NOTE | 2018-02-27 13:03 | PN ---
DATE: 02/27/2018 FOLLOWUP SUBJECTIVE: The patient is experiencing weakness and dizziness. The patient had 3 beats run of rapid AFib with aberrancy. He denies exertional chest pain. PHYSICAL EXAMINATION: VITAL SIGNS: Blood pressure 105/56, heart rate 75, temperature 97.8, respirations 20. HEENT: Normocephalic. CHEST: Clear. HEART: S1 and S2 regular. EXTREMITIES: Trace edema. LABORATORY DATA: Today's white count 27.9, hemoglobin and hematocrit 12.7 and 38. Platelet count is within normal limit. Today's SMA-7 is within normal limit except for glucose of 135 and BUN of 30. ASSESSMENT: 1. Chest pain. Myocardial infarction is ruled out. 2. History of coronary artery disease, status post double bypass surgery and coronary artery stenting in the past. 3. Status post ethyl alcohol intoxication. 4. Borderline hypertension. RECOMMENDATIONS: Continue current aspirin and Eliquis as well as Solu-Medrol. Coreg, Aldactone and Cozaar are on hold. Discontinue Lasix and hold Vistaril. Obtain carotid Doppler. Juan Maciel MD
--- NOTE | 2018-02-27 13:44 | CP.PCM.DIS ---
<JohnkatheJose feng - Last Filed: 02/27/18 13:40> Provider - Provider Date of Admission: 02/25/18 02:49 Attending physician: Gwyn Mac MD Primary care physician: Jasper Marlow MD Consults: Cards: Raheem Time Spent in preparation of Discharge (in minutes): 45 Diagnosis - Discharge Diagnosis (1) Chest pain Status: Acute (2) Alcohol intoxication Status: Chronic (3) COPD exacerbation Status: Acute (4) History of atrial fibrillation Status: Acute (5) CHF (congestive heart failure) Status: Chronic (6) Diabetes mellitus Status: Acute (7) HCV (hepatitis C virus) Status: Chronic Hospital Course - Lab Results Lab Results: Micro Results 02/26/18 13:00 Blood-Venous Blood Culture - Preliminary NO GROWTH AFTER 24 HOURS Most Recent Lab Values WBC 27.9 10^3/ul (4.5-11.0) H* 02/27/18 06:30 RBC 4.38 10^6/uL (3.5-6.1) 02/27/18 06:30 Hgb 12.7 g/dL (14.0-18.0) L 02/27/18 06:30 Hct 38.0 % (42.0-52.0) L 02/27/18 06:30 MCV 86.8 fl (80.0-105.0) 02/27/18 06:30 MCH 29.0 pg (25.0-35.0) 02/27/18 06:30 MCHC 33.4 g/dl (31.0-37.0) 02/27/18 06:30 RDW 17.3 % (11.5-14.5) H 02/27/18 06:30 Plt Count 365 10^3/uL (120.0-450.0) 02/27/18 06:30 MPV 10.5 fl (7.0-11.0) 02/27/18 06:30 Gran % 84.2 % (50.0-68.0) H 02/27/18 06:30 Lymph % (Auto) 6.2 % (22.0-35.0) L 02/27/18 06:30 Mercer % (Auto) 9.4 % (1.0-6.0) H 02/27/18 06:30 Eos % (Auto) 0.2 % (1.5-5.0) L 02/27/18 06:30 Baso % (Auto) 0.0 % (0.0-3.0) 02/27/18 06:30 Gran # 23.44 (1.4-6.5) H 02/27/18 06:30 Lymph # (Auto) 1.7 (1.2-3.4) 02/27/18 06:30 Mercer # (Auto) 2.6 (0.1-0.6) H 02/27/18 06:30 Eos # (Auto) 0.1 (0.0-0.7) 02/27/18 06:30 Baso # (Auto) 0.01 K/mm3 (0.0-2.0) 02/27/18 06:30 Neutrophils % (Manual) 79 % (50.0-70.0) H 02/26/18 07:00 Lymphocytes % (Manual) 9 % (22.0-35.0) L 02/26/18 07:00 Monocytes % (Manual) 9 % (1.0-6.0) H 02/26/18 07:00 Metamyelocytes % 1 % 02/26/18 07:00 Myelocytes % 2 % 02/26/18 07:00 Platelet Evaluation Normal (NORMAL) 02/26/18 07:00 PT 10.1 SECONDS (9.4-12.5) 02/25/18 01:56 INR 0.89 (0.93-1.08) L 02/25/18 01:56 APTT 21.0 Seconds (25.1-36.5) L 02/25/18 01:56 Sodium 135 mmol/L (132-148) 02/27/18 06:30 Potassium 4.4 mmol/L (3.6-5.0) 02/27/18 06:30 Chloride 98 mmol/L (98-107) 02/27/18 06:30 Carbon Dioxide 26 mmol/L (21-33) 02/27/18 06:30 Anion Gap 15 (10-20) 02/27/18 06:30 BUN 30 mg/dL (7-21) H 02/27/18 06:30 Creatinine 0.8 mg/dl (0.8-1.5) 02/27/18 06:30 Est GFR ( Amer) > 60 02/27/18 06:30 Est GFR (Non-Af Amer) > 60 02/27/18 06:30 POC Glucose (mg/dL) 131 mg/dL (65-110) H 02/27/18 11:30 Random Glucose 135 mg/dL (70-110) H 02/27/18 06:30 Calcium 9.0 mg/dL (8.4-10.5) 02/27/18 06:30 Magnesium 2.3 mg/dL (1.7-2.2) H 02/25/18 03:40 Total Bilirubin 0.5 mg/dL (0.2-1.3) 02/27/18 06:30 AST 131 U/L (17-59) H 02/27/18 06:30 ALT 249 U/L (7-56) H 02/27/18 06:30 Alkaline Phosphatase 214 U/L (38-126) H 02/27/18 06:30 Lactate Dehydrogenase 1238 U/L (333-699) H 02/25/18 01:56 Total Creatine Kinase 46 U/L (35-230) 02/25/18 01:56 Troponin I 0.02 ng/mL 02/25/18 11:30 NT-Pro-B Natriuret Pep 577 pg/mL (0-450) H 02/25/18 01:56 Total Protein 6.7 g/dL (5.8-8.3) 02/27/18 06:30 Albumin 3.6 g/dL (3.0-4.8) 02/27/18 06:30 Globulin 3.0 gm/dL 02/27/18 06:30 Albumin/Globulin Ratio 1.2 (1.1-1.8) 02/27/18 06:30 Alpha Fetoprotein 2.5 ng/mL (0.0-7.5) 02/25/18 04:20 Procalcitonin 0.19 NG/ML (0.19-0.49) 02/25/18 03:00 Digoxin < 0.4 ng/mL (0.8-2.0) L 02/25/18 07:30 Urine Opiates Screen Negative (NEGATIVE) 02/25/18 04:35 Urine Methadone Screen Negative (NEGATIVE) 02/25/18 04:35 Ur Barbiturates Screen Negative (NEGATIVE) 02/25/18 04:35 Ur Phencyclidine Scrn Negative (NEGATIVE) 02/25/18 04:35 Ur Amphetamines Screen Negative (NEGATIVE) 02/25/18 04:35 U Benzodiazepines Scrn Negative (NEGATIVE) 02/25/18 04:35 U Oth Cocaine Metabols Negative (NEGATIVE) 02/25/18 04:35 U Cannabinoids Screen Positive (NEGATIVE) H 02/25/18 04:35 Alcohol, Quantitative 120 mg/dL (0-10) H 02/25/18 02:50 - Hospital Course Hospital Course: On Admission: 57 year old male with a past medical history of Atrial fibrillation on Eliquis, Hep C, Asthma, CHF EF 15% s/p AICD, COPD, HTN, HLD, CAD s/p stents, CABG, Polysubstance abuse, Alcohol abuse who presents with some midsternal chest discomfort and shortness of breath after walking for thirty minutes. He called the ambulance and was brought in. He also reports of 3 days of a cough, some whitish sputum, but denies fever and chills. The chest pain is non-exertional in nature and the topical NG did not improve his symptoms. He is drinking and appears drunk on exam. He denies any fall, weakness, dysuria, or seizure like activities. He denies using any cocaine. He reports taking all his medications. Hospital course: ACS was ruled out with serial trops and EKGs. Patient was observed for alcohol w/d but did not exhibit any symptoms. Patient was treated for COPD exacerbations with steroids and IV levofloxacin. Patient was no longer wheezing and discharged on PO Augmentin and 40 mg Prednisone daily for 3 days and instructed to follow up with his regular doctor in 7-10 days. He was instructed to stop using alcohol and drugs. Discharge Exam - Head Exam Head Exam: ATRAUMATIC, NORMAL INSPECTION, NORMOCEPHALIC - Eye Exam Eye Exam: EOMI, Normal appearance, PERRL Pupil Exam: NORMAL ACCOMODATION, PERRL - Respiratory Exam Respiratory Exam: Clear to PA & Lateral, NORMAL BREATHING PATTERN, UNREMARKABLE. absent: Wheezes - Cardiovascular Exam Cardiovascular Exam: REGULAR RHYTHM - GI/Abdominal Exam GI & Abdominal Exam: Distended, Normal Bowel Sounds, Soft, Unremarkable. absent : Tenderness - Neurological Exam Neurological exam: Alert, CN II-XII Intact, Normal Gait, Oriented x3, Reflexes Normal - Psychiatric Exam Psychiatric exam: Normal Affect, Normal Mood - Skin Skin Exam: Dry, Intact, Normal Color, Warm Discharge Plan - Discharge Medications Prescriptions: Amoxicillin/Clavulanate [Augmentin 875 MG-125 MG] 1 tab PO Q12 5 Days tab Prednisone [Deltasone] 40 mg PO DAILY 3 Days tablet - Follow Up Plan Condition: STABLE Disposition: HOME/ ROUTINE Instructions: COPD Including Emphysema (DC), Chest Pain (DC) Additional Instructions: Please follow up with regular doctor in 7-10 days. Please come back to the ED if symptoms return. Please continue home medications. Please take prednisone 40mg daily for 3 days. Please continue taking Cipro for 3 more days. Referrals: Jasper Marlow MD [Primary Care Provider] - Clinical Quality Measures - CQM - Heart Failure Ejection Fraction: Less Than 40 % Left Ventricular Function to be assessed after discharge: No TEENA Inhibitor Prescribed: Yes Beta-Jazz Prescribed: Carvedilol Angiotensin II Receptor Jazz Prescribed: No Contraindication/Reason for not providing: on ACEI AnticoagulationTherapy for Atrial Fibrillation/Atrialflutter: Yes Aldosterone Antagonist Prescribed: Yes Hydralazine Nitrate Prescribed: No Contraindication/Reason for not providing: Not indicated Implantable Cardioverter Defibrillator Therapy: Yes Cardiac Resynchronization Therapy Prescribed: No Contraindication/Reason for not providing: Not indicated Will be discharged to: Home Follow Up Date (must be within 7 days from discharge): 03/06/18 Follow Up Time: 09:00 <Gwyn Mac - Last Filed: 02/27/18 15:21> Provider - Provider Date of Admission: 02/25/18 02:49 Attending physician: Gwyn Mac MD Primary care physician: Jasper Marlow MD Hospital Course - Lab Results Lab Results: Micro Results 02/26/18 13:00 Blood-Venous Blood Culture - Preliminary NO GROWTH AFTER 24 HOURS Most Recent Lab Values WBC 27.9 10^3/ul (4.5-11.0) H* 02/27/18 06:30 RBC 4.38 10^6/uL (3.5-6.1) 02/27/18 06:30 Hgb 12.7 g/dL (14.0-18.0) L 02/27/18 06:30 Hct 38.0 % (42.0-52.0) L 02/27/18 06:30 MCV 86.8 fl (80.0-105.0) 02/27/18 06:30 MCH 29.0 pg (25.0-35.0) 02/27/18 06:30 MCHC 33.4 g/dl (31.0-37.0) 02/27/18 06:30 RDW 17.3 % (11.5-14.5) H 02/27/18 06:30 Plt Count 365 10^3/uL (120.0-450.0) 02/27/18 06:30 MPV 10.5 fl (7.0-11.0) 02/27/18 06:30 Gran % 84.2 % (50.0-68.0) H 02/27/18 06:30 Lymph % (Auto) 6.2 % (22.0-35.0) L 02/27/18 06:30 Mercer % (Auto) 9.4 % (1.0-6.0) H 02/27/18 06:30 Eos % (Auto) 0.2 % (1.5-5.0) L 02/27/18 06:30 Baso % (Auto) 0.0 % (0.0-3.0) 02/27/18 06:30 Gran # 23.44 (1.4-6.5) H 02/27/18 06:30 Lymph # (Auto) 1.7 (1.2-3.4) 02/27/18 06:30 Mercer # (Auto) 2.6 (0.1-0.6) H 02/27/18 06:30 Eos # (Auto) 0.1 (0.0-0.7) 02/27/18 06:30 Baso # (Auto) 0.01 K/mm3 (0.0-2.0) 02/27/18 06:30 Neutrophils % (Manual) 79 % (50.0-70.0) H 02/26/18 07:00 Lymphocytes % (Manual) 9 % (22.0-35.0) L 02/26/18 07:00 Monocytes % (Manual) 9 % (1.0-6.0) H 02/26/18 07:00 Metamyelocytes % 1 % 02/26/18 07:00 Myelocytes % 2 % 02/26/18 07:00 Platelet Evaluation Normal (NORMAL) 02/26/18 07:00 PT 10.1 SECONDS (9.4-12.5) 02/25/18 01:56 INR 0.89 (0.93-1.08) L 02/25/18 01:56 APTT 21.0 Seconds (25.1-36.5) L 02/25/18 01:56 Sodium 135 mmol/L (132-148) 02/27/18 06:30 Potassium 4.4 mmol/L (3.6-5.0) 02/27/18 06:30 Chloride 98 mmol/L (98-107) 02/27/18 06:30 Carbon Dioxide 26 mmol/L (21-33) 02/27/18 06:30 Anion Gap 15 (10-20) 02/27/18 06:30 BUN 30 mg/dL (7-21) H 02/27/18 06:30 Creatinine 0.8 mg/dl (0.8-1.5) 02/27/18 06:30 Est GFR ( Amer) > 60 02/27/18 06:30 Est GFR (Non-Af Amer) > 60 02/27/18 06:30 POC Glucose (mg/dL) 131 mg/dL (65-110) H 02/27/18 11:30 Random Glucose 135 mg/dL (70-110) H 02/27/18 06:30 Calcium 9.0 mg/dL (8.4-10.5) 02/27/18 06:30 Magnesium 2.3 mg/dL (1.7-2.2) H 02/25/18 03:40 Total Bilirubin 0.5 mg/dL (0.2-1.3) 02/27/18 06:30 AST 131 U/L (17-59) H 02/27/18 06:30 ALT 249 U/L (7-56) H 02/27/18 06:30 Alkaline Phosphatase 214 U/L (38-126) H 02/27/18 06:30 Lactate Dehydrogenase 1238 U/L (333-699) H 02/25/18 01:56 Total Creatine Kinase 46 U/L (35-230) 02/25/18 01:56 Troponin I 0.02 ng/mL 02/25/18 11:30 NT-Pro-B Natriuret Pep 577 pg/mL (0-450) H 02/25/18 01:56 Total Protein 6.7 g/dL (5.8-8.3) 02/27/18 06:30 Albumin 3.6 g/dL (3.0-4.8) 02/27/18 06:30 Globulin 3.0 gm/dL 02/27/18 06:30 Albumin/Globulin Ratio 1.2 (1.1-1.8) 02/27/18 06:30 Alpha Fetoprotein 2.5 ng/mL (0.0-7.5) 02/25/18 04:20 Procalcitonin 0.19 NG/ML (0.19-0.49) 02/25/18 03:00 Digoxin < 0.4 ng/mL (0.8-2.0) L 02/25/18 07:30 Urine Opiates Screen Negative (NEGATIVE) 02/25/18 04:35 Urine Methadone Screen Negative (NEGATIVE) 02/25/18 04:35 Ur Barbiturates Screen Negative (NEGATIVE) 02/25/18 04:35 Ur Phencyclidine Scrn Negative (NEGATIVE) 02/25/18 04:35 Ur Amphetamines Screen Negative (NEGATIVE) 02/25/18 04:35 U Benzodiazepines Scrn Negative (NEGATIVE) 02/25/18 04:35 U Oth Cocaine Metabols Negative (NEGATIVE) 02/25/18 04:35 U Cannabinoids Screen Positive (NEGATIVE) H 02/25/18 04:35 Alcohol, Quantitative 120 mg/dL (0-10) H 02/25/18 02:50 Attending/Attestation - Attestation I have personally seen and examined this patient.: Yes I have fully participated in the care of the patient.: Yes I have reviewed all pertinent clinical information, including history, physical exam and plan: Yes Notes (Text): 02/27/18 15:18 Medical record note made by the resident after discussion with my direction and input after the patient was personally seen and examined by me. I have reviewed the chart and agree that the record accurately reflects by personal performance of the history, physical exam, data review, and medical decision-making, in the course for the patient. I have also personally directed the plan of care. 57 year old male with a past medical history of Atrial fibrillation on Eliquis, Hep C, Asthma, CHF EF 15% ,SP AICD, COPD, HTN, HLD, CAD s/p stents, CABG, Polysubstance abuse, Alcohol abuse was admitted with chest pain, cough and dyspnea..Patient has , has chest wall tenderness.Chest pain is atypical in nature.Serial troponins are normal. COPD exacerbation, improved Neb/Steroid and antibiotics.Patient will be discharged home on 5 days course of oral prednisone. Leukocytosis is due to steroid.Patient is afebrile.There is no sign of infection.He will need repeat CBC in one week with PMD. Elevated LFT due to alcohol abuse.improved, now stable at his base line., Alcohol withdrawal are improved Issue of ongoing alcohol abuse, chronic smoking and compliance with medication was discussed in detail. Management plan was discussed in detail with patient. Education was provided. Prognosis is guarded.
== END 2018-02-27 13:09 | disposition home or self-care (01) ==
LOC: ED 01:27 → ERH 02:49 → 2RSO 04:33 → OBSVTOIN 02-26 08:24 → INTOOBSV 02-26 08:24
PROVIDERS: ADMIT Internal Medicine; ATTEND Internal Medicine
DX: J44.1 Chronic obstructive pulmonary disease with (acute) exacerbation (principal); F10.239 Alcohol dependence with withdrawal, unspecified; I11.0 Hypertensive heart disease with heart failure; I50.20 Unspecified systolic (congestive) heart failure; I48.91 Unspecified atrial fibrillation; E11.9 Type 2 diabetes mellitus without complications; B19.20 Unspecified viral hepatitis C without hepatic coma; G40.909 Epilepsy, unspecified, not intractable, without status epilepticus; I25.10 Atherosclerotic heart disease of native coronary artery without angina pectoris; F17.200 Nicotine dependence, unspecified, uncomplicated; I48.92 Unspecified atrial flutter; E78.5 Hyperlipidemia, unspecified; D72.829 Elevated white blood cell count, unspecified; T38.0X5A Adverse effect of glucocorticoids and synthetic analogues, initial encounter; F12.10 Cannabis abuse, uncomplicated; Y90.6 Blood alcohol level of 120-199 mg/100 ml; I27.20 Pulmonary hypertension, unspecified; R07.89 Other chest pain; Z95.810 Presence of automatic (implantable) cardiac defibrillator; Z90.81 Acquired absence of spleen; Z79.84 Long term (current) use of oral hypoglycemic drugs; Z95.5 Presence of coronary angioplasty implant and graft; Z95.1 Presence of aortocoronary bypass graft; Z87.01 Personal history of pneumonia (recurrent); Z79.01 Long term (current) use of anticoagulants; Z86.73 Personal history of transient ischemic attack (TIA), and cerebral infarction without residual deficits
CPT/HCPCS: 36415; 71045; 76700; 80053; 80162; 80177; 80320; 80324; 80345; 80346; 80349; 80353; 80358; 80361; 82105; 82550; 82948; 83615; 83735; 83880; 83992; 84145; 84484; 85025; 85027; 85610; 85730; 87040; 93005; 94640; 94760; 96374; 96375; 96376; 99285; G0378; J1885; J1940; J2060; J2920

== ENCOUNTER 2018-10-26 23:27 | Emergency (ER) | payer OTHER ==
[2018-10-26 23:27] VITALS: PULSE 126; BMI 11.7
[2018-10-27 01:12] VITALS: RESP 18
--- NOTE | 2018-10-27 01:42 | ED PDOC ---
Arrival/HPI - General Chief Complaint: Medical Clearance Time Seen by Provider: 10/26/18 23:35 Historian: Patient - History of Present Illness Narrative History of Present Illness (Text): 10/26/18 23:40 58 year old male, whose past medical history includes Atrial fibrillation on Eliquis, Hep C, Asthma, CHF EF 15% s/p AICD, COPD, HTN, HLD, CAD s/p stents, CABG, Polysubstance abuse, Alcohol abuse, presents to the emergency department after calling 911 because he thought he was going to have a seizure on transport. Patient denies having a seizure today. He currently has no complaints. Patient appears intoxicated. Patient admits to drinking half a pint to a pint of alcohol today. Patient is a chronic drinker. He states he was just discharge from [facility] today and that they did an EEG for his seizure and a stress test for his history of cardiac issues. Patient denies any fever, chills, chest pain, shortness of breath, nausea, vomiting, diarrhea, urinary symptoms, back pain, neck pain, headache, dizziness, or any other complaints. PMD: Dr. Adalberto Marlow Time/Duration: Other (today) Symptom Onset: Sudden Activities at Onset: Light Past Medical History - Provider Review Nursing Documentation Reviewed: Yes - Infectious Disease Hx of Infectious Diseases: None - Tetanus Immunization Tetanus Immunization: Unknown - Cardiac Hx Atrial Fibrillation: Yes Hx Cardiac Arrhythmia: Yes Hx Congestive Heart Failure: Yes Hx Hypertension: Yes Hx Pacemaker: Yes - Pulmonary Hx Asthma: Yes Hx Chronic Obstructive Pulmonary Disease (COPD): Yes Hx Pneumonia: Yes - Neurological Hx Seizures: Yes - HEENT Hx HEENT Disorder: No - Renal Hx Renal Disorder: No - Endocrine/Metabolic Hx Diabetes Mellitus Type 2: Yes - Hematological/Oncological Hx Blood Disorders: Yes - Integumentary Hx Dermatological Disorder: No - Musculoskeletal/Rheumatological Hx Falls: Yes - Gastrointestinal Hx Gastrointestinal Disorders: No - Genitourinary/Gynecological Hx Genitourinary Disorders: No - Psychiatric Hx Depression: Yes Hx Substance Use: Yes - Surgical History Hx Coronary Artery Bypass Graft: Yes Hx Coronary Stent: Yes (4) - Anesthesia Hx Anesthesia: Yes Hx Anesthesia Reactions: No Hx Malignant Hyperthermia: No - Suicidal Assessment Feels Threatened In Home Enviroment: No Family/Social History - Physician Review Nursing Documentation Reviewed: Yes Family/Social History: No Known Family HX Smoking Status: Current Some Days Smoker Hx Alcohol Use: Yes Hx Substance Use: Yes Hx Substance Use Treatment: No Allergies/Home Meds Allergies/Adverse Reactions: Allergies No Known Allergies Allergy (Verified 04/30/18 20:46) as per patient Home Medications: Home Meds Medication Instructions Recorded Confirmed Folic Acid 1 mg PO DAILY 05/30/17 04/05/18 Thiamine [Vitamin B1 Tab] 100 mg PO DAILY 05/30/17 04/05/18 Apixaban [Eliquis] 5 mg PO Q12H 07/30/17 04/05/18 Fluticasone/Vilanterol [Breo 1 each IH DAILY 07/30/17 04/05/18 Ellipta 200-25 Mcg INH] Furosemide [Lasix] 40 mg PO DAILY 07/30/17 04/05/18 Montelukast [Singulair] 5 mg PO DAILY 07/30/17 04/05/18 Carvedilol [Coreg] 12.5 mg PO Q12 11/14/17 04/05/18 Aspirin [Ecotrin] 81 mg PO DAILY 03/23/18 04/05/18 Atorvastatin [Lipitor] 20 mg PO DAILY 03/23/18 04/05/18 Digoxin 125 mcg PO DAILY 03/23/18 04/05/18 Tamsulosin [Flomax] 0.4 mg PO DAILY 03/23/18 04/05/18 levETIRAcetam [Keppra] 500 mg PO Q12 03/23/18 04/05/18 Review of Systems - Physician Review All systems were reviewed & negative as marked: Yes - Review of Systems Constitutional: absent: Fevers, Other (chills) Respiratory: absent: SOB Cardiovascular: absent: Chest Pain Gastrointestinal: absent: Diarrhea, Nausea, Vomiting Genitourinary Male: absent: Dysuria, Frequency, Hematuria Musculoskeletal: absent: Back Pain, Neck Pain Neurological: Seizure ("going to have a seizure"). absent: Headache, Dizziness Physical Exam Vital Signs Reviewed: Yes Vital Signs Temp Pulse Resp BP Pulse Ox 10/27/18 01:12 98.3 F 105 H 18 100/58 L 97 Temperature: Afebrile Blood Pressure: Hypotensive Pulse: Tachycardic Respiratory Rate: Normal Appearance: Positive for: Well-Appearing, Non-Toxic, Comfortable Pain Distress: None Mental Status: Positive for: Alert and Oriented X 3, other (intoxicated) - Systems Exam Head: Present: Atraumatic, Normocephalic Pupils: Present: PERRL Extroacular Muscles: Present: EOMI Conjunctiva: Present: Normal Mouth: Present: Moist Mucous Membranes, Other (ordor of alcohol on breath) Neck: Present: Normal Range of Motion Respiratory/Chest: Present: Clear to Auscultation, Good Air Exchange. No: Respiratory Distress, Accessory Muscle Use Cardiovascular: Present: Regular Rate and Rhythm, Normal S1, S2. No: Murmurs Abdomen: No: Tenderness, Distention, Peritoneal Signs Back: Present: Normal Inspection Upper Extremity: Present: Normal Inspection. No: Cyanosis, Edema Lower Extremity: Present: Normal Inspection. No: Edema Neurological: Present: GCS=15, CN II-XII Intact, Other (Slurred speech) Skin: Present: Warm, Dry, Normal Color. No: Rashes Psychiatric: Present: Alert, Oriented x 3, Normal Insight, Normal Concentration, Intoxicated Medical Decision Making ED Course and Treatment: 10/26/18 23:45 Impression: 58 year old male presents after calling 911 because he thought he was goign to have a seizure. Patient denies any complaints at this time. Plan: -- Reassess and disposition Prior Visits: Notes and results from previous visits were reviewed. Progress Notes: 10/27/18 04:16 Patient is awake, alert, and ambulating with a steady gait. Patient denies any complaints at this time and wants to leave. Patient is stable for discharge. - Scribe Statement The provider has reviewed the documentation as recorded by the Oliva Alvarez Provider Scribe Attestation: All medical record entries made by the Oliva were at my direction and personally dictated by me. I have reviewed the chart and agree that the record accurately reflects my personal performance of the history, physical exam, medical decision making, and the department course for this patient. I have also personally directed, reviewed, and agree with the discharge instructions and disposition. Disposition/Present on Arrival - Present on Arrival History of DVT/PE: No History of Uncontrolled Diabetes: No Urinary Catheter: No History of Decub. Ulcer: No History Surgical Site Infection Following: None - Disposition Diagnosis: ETOH abuse Disposition: HOME/ ROUTINE Patient Problems: Current Active Problems Problem Status Onset Alcohol abuse Acute Condition: STABLE Discharge Instructions (ExitCare): Alcohol Abuse and Alcoholism (DC) Additional Instructions: CHRIS HOFFMANN, thank you for letting us take care of you today. Your provider was Viki Newell MD and you were treated for MEDICAL CLEARANCE. The emergency medical care you received today was directed at your acute symptoms. If you were prescribed any medication, please fill it and take as directed. It may take several days for your symptoms to resolve. Return to the Emergency Department if your symptoms worsen, do not improve, or if you have any other problems. Please contact your doctor or call one of the physicians/clinics you have been referred to that are listed on the Patient Visit Information form that is included in your discharge packet. Bring any paperwork you were given at discharge with you along with any medications you are taking to your follow up visit. Our treatment cannot replace ongoing medical care by a primary care provider outside of the emergency department. Thank you for allowing the [facility] team to be part of your care today. If you had an X-Ray or CT scan: A Radiologist will review the ED reading if any change in treatment is needed we will contact you. If you had a blood, urine, or wound culture: It will take several days for the results, if any change in treatment is needed we will contact you. If you had an STI test: It will take 48 hours for the results. Please call after 1 week if you have not heard back. Referrals: Jasper Marlow MD [Primary Care Provider] - Follow up with primary Forms: Actual Experience ([place])
[2018-10-27 04:27] VITALS: BP 110/62; PULSE 95; TEMP 98.2; O2SAT 99
== END 2018-10-27 04:26 | disposition home or self-care (01) ==
LOC: ED 23:27
DX: F10.10 Alcohol abuse, uncomplicated (principal); E11.9 Type 2 diabetes mellitus without complications; E78.5 Hyperlipidemia, unspecified; I25.10 Atherosclerotic heart disease of native coronary artery without angina pectoris; I48.91 Unspecified atrial fibrillation; I50.9 Heart failure, unspecified; I10 Essential (primary) hypertension; Z79.01 Long term (current) use of anticoagulants; Z95.1 Presence of aortocoronary bypass graft; J44.9 Chronic obstructive pulmonary disease, unspecified; B19.20 Unspecified viral hepatitis C without hepatic coma